=== PATIENT | female | born 1970 | race Caucasian/White ===

== ENCOUNTER 2020-02-12 13:55 | Outpatient (RCR) | payer BC, SELFPAY ==
--- NOTE | 2020-02-12 14:47 | PTOPEVAL ---
Thank you for referring Lety Clinton to [facility].? The patient is scheduled to be seen for therapy? ____x/week for ___ weeks. Please review, sign, date and return this plan of care TRIXIE. I agree with and certify that the following plan of care is medically necessary. 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 she reports she ihas tightness in the L knee, but is able to walk short distances with a cane. she reports she used a walker initially. she reports just followed up with her surgeon on 02/07/20. she reports her L knee was closed up with glue. she reports she has the greatest difficulty still with bending the knee. Prior Level of Function Comments Additional Prior Level of Function prior to surgery, patient had Comments decent mobility, but reports she fell a lot due to instability/weakness of the L knee. Pain Assessment Timing of Pain Assessment Timing of Pain Assessment Assessment Pain Scale Pain Scale Used Numeric (1 - 10) Self Report Pain Assessment Left Knee(s) Reported Pain Level 0 Lowest Pain Intensity 0 Greatest Pain Intensity 0 Pain Score Pain Score 0: Self Report Lower Extremity Range of Motion General Lower Extremity Range of Motion Gross Lower Extremity Range of Motion 44.5cm R knee jt line girth Comments 45cm L knee jt line girth Knee Range of Motion Left Knee Flexion Range of Motion - Active 100 Knee Extension Range of Motion - Active -10 Query Text: Right Knee Flexion Range of Motion - Active 125 Knee Extension Range of Motion - Active 0 Query Text: Lower Extremity Muscle Strength Testing Hip Strength Bilateral Hip Flexion Strength 3+ Fair + Knee Strength Left Kn
== END 2020-03-25 14:06 | disposition home or self-care (01) ==
LOC: CHSPT 13:55
DX: M25.562 Pain in left knee (principal)
CPT/HCPCS: 97110; 97161; 97530

== ENCOUNTER 2025-03-22 09:23 | Outpatient (CLI) | payer SELFPAY ==
--- NOTE | ~2025-03-22 | US_ITS ---
US thyroid INDICATION: Abnormal thyroid scan TECHNIQUE: Real-time sonographic images of the thyroid gland were obtained. COMPARISON: No prior studies for comparison. FINDINGS: The right thyroid lobe measures 5.8 x 2.5 x 2.1 cm. The left thyroid lobe measures 4 x 1.1 x 1.1 cm. There is heterogeneous echotexture throughout the thyroid gland with multiple small nodules, largest dominant mass in the right thyroid measuring 3 cm. This mass is solid, hypoechoic wider than tall smoothly marginated without echogenic foci, TR 4. This made sonographic criteria for biopsy. No additional nodules or identified which meet criteria for biopsy. IMPRESSION: 1. Suspicious right thyroid mass measuring 3 cm, TR 4. Ultrasound-guided fine- needle aspiration biopsy recommended.. Reviewed, dictated and finalized at location O.
== END 2025-03-22 09:24 | disposition home or self-care (01) ==
PROVIDERS: PCP Emergency Medicine; Visit Provider Emergency Medicine
DX: R94.6 Abnormal results of thyroid function studies (principal)
CPT/HCPCS: 76536